=== PATIENT | female | born 1980 | race Caucasian/White ===

== ENCOUNTER → 2020-11-11 08:43 | Outpatient (CLI) | payer OTHER, SELFPAY ==
--- NOTE | ~2020-11-11 | MMUS_ITS ---
EXAMINATION: MM diagnostic ashok BI w marisa, US breast LT complete HISTORY: Lump in left axilla TECHNIQUE: ML, MLO and craniocaudal 3-D tomosynthesis images of both breasts were performed and synth etic 2-D images were generated. Bilateral rotated lateral cc views. Spot image of left breast in ML a nd MLO views. CAD analysis was submitted and interpreted. High resolution complete left breast and le ft axillary ultrasound was performed. COMPARISON: None BREAST PARENCHYMAL COMPOSITION: The breasts are heterogeneously dense, which may obscure small masses . FINDINGS: MAMMOGRAPHIC FINDINGS: No suspicious mass or architectural distortion, malignant calcification, skin thickening or retractio n is detected. ULTRASOUND: 7:00 4 cm from nipple: Parallel circumscribed 2.5 x 3.9 mm hypoechoic lesion without internal vascula rity or posterior shadowing. No suspicious mass or shadowing is detected. IMPRESSION: 1. No mammographic evidence of malignancy 2. Routine annual mammographic screening is recommended. BI-RADS Category 2: Benign finding(s). Reviewed, dictated and finalized at location A. IMPRESSION: 1. No mammographic evidence of malignancy 2. Routine annual mammographic screening is recommended. BI-RADS Category 2: Benign finding(s).
== END ==
PROVIDERS: PCP Pediatrics
DX: N63.0 Unspecified lump in unspecified breast (principal)
CPT/HCPCS: 76641; 77062; 77066; G0279